=== PATIENT | female | born 1985 | race Caucasian/White ===

== ENCOUNTER 2016-05-05 08:13 | Inpatient (IN) | payer OTHER ==
[~2016-05-05] VITALS: Ht 160 cm; Wt 100.0 kg
[~2016-05-05 08:13] MED LIST: ACET-1256 PO; BCPILLS PO; MTR600X PO; PRENTAB26 PO
[2016-05-05] MEDS ORDERED: LACTATED RINGER'S 1000ML 1,000 ML IV SCH (08:38)
[2016-05-05] MEDS ORDERED: LACTATED RINGER'S 1000ML 1,000 ML IV PRN (08:38)
[2016-05-05] MEDS ORDERED: PENICILLIN G POTASSIUM IV 3 MU in DEXTROSE 5% 100ML 100 ML IV PRN (08:45)
[2016-05-05] MEDS ORDERED: PENICILLIN G POTASSIUM IV 6 MU in DEXTROSE 5% 250ML 250 ML IV ONE (09:15)
[2016-05-05 09:20] LABS: MEAN CELL VOLUME 92.8 fL (80-100); MEAN CORPUSCULAR HEMOGLOBIN 32.2 pg (25-34); MEAN CORPUSCULAR HGB CONC 34.7 g/dl (32-36); MEAN PLATELET VOLUME 9.8 fL (7.4-10.4); PLATELET COUNT 162 K/uL (130-400); RED BLOOD COUNT 3.88 M/uL (4.2-5.4); WHITE BLOOD COUNT 14.77 K/uL (4.8-10.8)
[2016-05-05] MEDS ORDERED: EpHEDrine SULFATE INJ 50 MG/ML AMP ONE (09:32)
[2016-05-05] MEDS ORDERED: BUPIVACAINE 0.25% 30 ML VIAL ONE (09:32)
[2016-05-05] MEDS ORDERED: FENTANYL 2MCG/ML ROPIV 1.25MG/ML 100ML BAG EPI ONE (09:32)
[2016-05-05] MEDS ORDERED: FENTANYL CITRATE INJ 50 MCG/1 ML 2 ML VIAL ONE (09:33)
[2016-05-05] MEDS ORDERED: NALOXONE HCL INJ 1 MG in SODIUM CHLORIDE 0.9% 1000ML 1,000 ML IV PRN (10:31)
[2016-05-05] MEDS ORDERED: LACTATED RINGER'S 1000ML 500 ML IV PRN (10:31)
--- NOTE | 2016-05-05 10:33 | HISTORY & PHYSICAL EXAMINATION ---
DATE OF ADMISSION: 05/05/2016 CHIEF COMPLAINT: Contractions. HISTORY OF PRESENT ILLNESS: The patient is a 31-year-old 2, para 1 at 39 weeks and 2 days gestation who presents to labor and delivery with contractions that began around morning and progressively increased in intensity and frequency. On arrival, she states she was alexandra every 2-3 minutes. She was found to be 6-7 cm, 75% effaced, and -2 station. She is GBS positive and therefore will begin penicillin for GBS prophylaxis. Her care has been uncomplicated. PAST MEDICAL HISTORY: Significant for depression and anxiety. PAST SURGICAL HISTORY: She has a history of a spontaneous vaginal delivery in December of 2012 at term. SOCIAL HISTORY: She denies tobacco, alcohol or drug use. MEDICATIONS: vitamins. ALLERGIES: No known drug allergies. LABS: Blood type is O positive, group B strep positive, rubella immune, hepatitis B surface antigen negative, RPR nonreactive. PHYSICAL EXAMINATION: VITAL SIGNS: Blood pressure is 130/80, heart rate of 102. GENERAL: The patient is awake, alert and oriented x3. She is in moderate distress from her contractions. HEART: Regular rate and rhythm. LUNGS: Clear to auscultation bilaterally. ABDOMEN: Gravid uterus, appropriate for gestational age. Bowel sounds present x4. EXTREMITIES: No clubbing, cyanosis or calf tenderness. VAGINAL EXAMINATION: She is 6-7 cm, 75% effaced, and -2 station. heart tones are category 1. ASSESSMENT AND PLAN: A 31-year-old 2, para 1 at 39 weeks and 2 days gestation will be admitted to labor and delivery for active labor. Will begin with penicillin for GBS prophylaxis. Will augment labor as needed and anticipate vaginal delivery.
[2016-05-05] MEDS ORDERED: NALBUPHINE HCL INJ 10 MG/ML AMP IV PRN (10:45)
[2016-05-05] MEDS ORDERED: NALOXONE HCL INJ 0.4 MG/1 ML VIAL/CARP IV PRN (10:45)
[2016-05-05] MEDS ORDERED: DiphenhydrAMINE HCL 50 MG/ML VIAL IV PRN (10:45)
[2016-05-05] MEDS ORDERED: FENTANYL 2MCG/ML ROPIV 1.25MG/ML 100ML BAG EPI PRN (10:45)
[2016-05-05] MEDS ORDERED: EpHEDrine SULFATE INJ 50 MG/ML AMP IV PRN (10:45)
[2016-05-05 11:05] VITALS: Ht 160 cm; Wt 100.0 kg
[2016-05-05] MEDS ORDERED: OXYTOCIN 30 UNITS/500ML NSS IV ONE (15:19)
[2016-05-05] MEDS ORDERED: OXYTOCIN 30 UNITS/500ML NSS IV PRN (15:45)
[2016-05-05] MEDS ORDERED: ACETAMINOPHEN 325 MG TAB PO PRN (15:45)
[2016-05-05] MEDS ORDERED: ACETAMINOPHEN/CODEINE 300/30MG TAB PO PRN ×2 (15:45)
[2016-05-05] MEDS ORDERED: LANOLIN OINT EXT PRN ×2 (15:45)
[2016-05-05] MEDS ORDERED: SUPERCREAM 0.870 % 15GM JAR EXT PRN (15:45)
[2016-05-05] MEDS ORDERED: BENZOCAINE 20% AER SPR 82.5 GM CAN EXT PRN (15:45)
[2016-05-05] MEDS ORDERED: OXYCODONE/ACETAMINOPHEN 5-325 TAB PO PRN (15:45)
[2016-05-05] MEDS ORDERED: HYDROCORTISONE ACETATE 25 MG SUPP PR PRN (15:45)
[2016-05-05] MEDS ORDERED: DIPHTHERIA/TETANUS/PERTUSSIS 0.5 ML SYR/VIAL IM. ONE (15:45)
--- NOTE | 2016-05-05 16:11 | DELIVERY SUMMARY ---
DATE OF OPERATION: 05/05/2016 TIME OF DELIVERY: 15:24. DELIVERY OF PLACENTA: 15:27. DELIVERY NOTE: The patient is a 31-year-old 2, para 1 at 39 weeks' and 2 days' gestation who presented to labor and delivery on the morning of 05/05/2016 in active labor. She received an epidural for anesthesia. Spontaneous rupture of membranes occurred at 12:51 with clear amniotic fluid noted. She reached complete dilation at 14:27 with the urge to push. The patient pushed to delivery at 15:24. She delivered a viable male infant to an intact perineum at 15:24 in the left occiput anterior position with Apgars of 8 at 1 minute and 9 at 5 minutes. The baby was placed on the patient's abdomen. The cord was clamped x2 and cut. Please see nursing notes for further baby assessment. Cord blood donation was obtained along with cord blood and an intact placenta with 3-vessel cord was delivered at 15:27. Oxytocin infusion was then begun. The lower uterine segment and vagina was cleared of any blood clot and debris. Exploration of the perineum noted no lacerations. Estimated blood loss was 250 mL. All sponge and instrument counts were found to be correct x2. Both the patient and baby tolerated the delivery well and was in recovery with stable vital signs. I attest to the content of the Intraoperative Record and any orders documented therein. Any exceptio ns are noted below.
--- NOTE | 2016-05-05 16:57 | Anesthesia Procedure Note ---
Anesthesia Epidural Removal Nt Date & Time May 05, 2016 at 16:56 Vital Signs Pain Intensity: 8.0 Notes Mental Status: alert / awake / arousable, participated in evaluation Nausea / Vomiting: adequately controlled Pain: adequately controlled Airway Patency, RR, SpO2: stable & adequate BP & HR: stable & adequate Hydration State: stable & adequate Neuraxial Anesthesia: was administered Anesthetic Complications: no major complications apparent, pt satisfied with anesthetic care Epidural: removed without complications, with tip intact
[2016-05-05 20:00] VITALS: BP 124/81; PULSE 86; TEMP 36.5
[2016-05-05] MEDS: DOCUSATE SODIUM 100 MG CAP PO SCH (20:10)
[2016-05-06 00:08] VITALS: BP 132/85; PULSE 85; TEMP 36.6
[2016-05-06] MEDS: IBUPROFEN 600 MG TAB PO PRN ×5 (03:23→22:20)
[2016-05-06 03:30] VITALS: BP 128/86; PULSE 80; TEMP 36.6
[2016-05-06 06:19] LABS: HEMATOCRIT 40.3 % (37-47)
--- NOTE | 2016-05-06 06:55 | OB/GYN Progress Note ---
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 Subjective conversation w/ patient, physical exam Ambulation: ambulating normally Voiding: no voiding problems Passing Gas: Yes Diet Tolerance: Regular Diet Lochia: Moderate Feeding Type: Breast Feeding Pain: 2/10 Notes: Doing well. Pain well controlled. Ambulating without difficulty. Tolerating regular diet. Lochia moderate. Objective Vital Signs Date Time Temp Pulse Resp B/P Pulse Ox O2 Delivery O2 Flow Rate FiO2 05/06/16 03:30 36.6 80 18 128/86 Room Air 05/06/16 00:08 36.6 85 18 132/85 05/06/16 00:03 Room Air 05/05/16 20:00 Room Air 05/05/16 20:00 36.5 86 18 124/81 Room Air Physical Exam General Appearance: WELL-APPEARING Respiratory/Chest: chest non-tender, lungs clear Cardiovascular: regular rate, rhythm Abdomen: normal bowel sounds, soft Fundus: Firm Extremities: normal range of motion, non-tender, no calf tenderness Laboratory Results Last 24 Hours Test 05/05/16 09:10 05/06/16 05:58 White Blood Count 14.77 K/uL Red Blood Count 3.88 M/uL Hemoglobin 12.5 g/dL 14.0 g/dL Hematocrit 36.0 % 40.3 % Mean Corpuscular Volume 92.8 fL Mean Corpuscular Hemoglobin 32.2 pg Mean Corpuscular Hemoglobin Concent 34.7 g/dl RDW Standard Deviation 46.9 fL RDW Coefficient of Variation 13.9 % Platelet Count 162 K/uL Mean Platelet Volume 9.8 fL Assessment and Plan Post- Day Number: 1 Continue Routine Care: -Continue routine care -Anticipate d/c home tomorrow
[2016-05-06] MEDS: DOCUSATE SODIUM 100 MG CAP PO SCH ×2 (08:00→19:26)
[2016-05-06] MEDS: PRENATAL VITAMIN TAB PO SCH (08:12)
[2016-05-06] MEDS: FERROUS SULFATE 325 MG TAB PO SCH (08:12)
[2016-05-06 09:10] VITALS: BP 110/68; PULSE 75; TEMP 36.7; O2SAT 97
[2016-05-06 11:50] VITALS: BP 130/82; PULSE 95; TEMP 36.3
[2016-05-06 16:20] VITALS: BP 127/83; PULSE 92; TEMP 36.7
[2016-05-06] MEDS ORDERED: BISACODYL 5 MG TABEC PO SCH (20:00)
[2016-05-06 22:50] VITALS: BP 146/88; PULSE 84; TEMP 36.7
[2016-05-07] MEDS ORDERED: BISACODYL 10 MG SUPP PR PRN (07:00)
[2016-05-07 07:09] LABS: HEMATOCRIT 36.4 % (37-47); MEAN CELL VOLUME 94.3 fL (80-100); MEAN CORPUSCULAR HEMOGLOBIN 32.1 pg (25-34); MEAN CORPUSCULAR HGB CONC 34.1 g/dl (32-36); MEAN PLATELET VOLUME 9.8 fL (7.4-10.4); PLATELET COUNT 168 K/uL (130-400); RED BLOOD COUNT 3.86 M/uL (4.2-5.4); WHITE BLOOD COUNT 12.48 K/uL (4.8-10.8)
[2016-05-07 08:05] VITALS: BP 123/85; PULSE 76; TEMP 36.7; O2SAT 97
[2016-05-07] MEDS: FERROUS SULFATE 325 MG TAB PO SCH (08:40)
[2016-05-07] MEDS: DOCUSATE SODIUM 100 MG CAP PO SCH (08:40)
[2016-05-07] MEDS: PRENATAL VITAMIN TAB PO SCH (08:40)
[2016-05-07] MEDS: IBUPROFEN 600 MG TAB PO PRN (08:42)
[2016-05-07] MEDS ORDERED: MTR600X PO (10:32)
--- NOTE | 2016-05-07 10:34 | Discharge Instructions ---
Discharge Instructions Admission Reason for Admission: Check Labor Discharge Discharge Diagnosis / Problem: term delivered Discharge Goals Goal(s): Routine recovery after delivery Activity Recommendations Activity Limitations: as noted below Lifting Limitations: no more than 10 pounds Exercise/Sports Limitations: until after follow-up appointment May Resume Sexual Activity: after follow-up appointment Shower/Bathe: no limitations Driving or Machine Use: resume 3 days after discharge . Instructions / Follow-Up Instructions / Follow-Up ACTIVITY RECOMMENDATIONS: * Gradual return to full activity over the next 2-3 weeks. * No lifting - nothing heavier than baby over the next 2-3 weeks. * Do not engage in vigorous exercise, sexual activity or sports until cleared by your physician. * Do not drive or operate any motorized equipment until cleared by your physician. * You may shower/bathe daily. BREAST CARE: If you are not breast feeding: * Wear a supportive bra 24 hours a day for one to two weeks. * Avoid stimulating your breasts and nipples as much as possible during the first few weeks after delivery. * When taking a shower, have the warm water hit your back, not breasts. * When your breasts feel full, apply ice packs. Usually three to four times a day helps ease the discomfort. * Take a mild pain medication (Tylenol/Motrin) when you are uncomfortable. If breast feeding: * Use breast milk to lubricate nipples. Lansinoh cream may be used for sore nipples. You do not need to remove cream prior to breast feeding. If using a different brand of cream, check the label for directions regarding removal of cream prior to nursing. * Wear a supportive bra. * If having problems with breasts or breast feeding, call a strategy execution consultant or your health care provider. EPISIOTOMY CARE: After delivery, if you have an episiotomy (stitches), the following steps will ease discomfort and aid healing. * For the first 24 hours after delivery, place ice packs next to your episiotomy to help reduce swelling. * After the first 24 hour-period, sitz baths, either portable or in the tub, are suggested. A shower with a shower arm sprayed over the episiotomy may be comforting. * Lisa care should be done after each voiding and bowel movement. Squirt warm water from a plastic bottle over the perineum (region of the body between the anus and urinary opening) and pat dry. * Use Dermoplast to ease discomfort. Shake container. [place] directly over the episiotomy. * Place a Tucks on a clean sanitary pad next to your episiotomy. OVER THE COUNTER MEDICATION: * For discomfort or pain, you may use Acetaminophen (Tylenol), Ibuprofen (Advil ), or Naproxen (Aleve) following the package directions. * For constipation you may use Colace following the package directions. SPECIAL CARE INSTRUCTIONS: When you are discharged from the hospital, it is important for you to follow the instructions listed below: * During the first week at home, you should be able to care for yourself and your baby. In addition, the usual light household activities are encouraged. * Limit your activities to the way you feel. Do not try to clean the house or move furniture. Be sensible. * If you actively engage in sports and have done so up until the time of your delivery, you may resume these activities as soon as you feel able. This may take up to one month or even longer. Use good judgment. * Continue to take your vitamins for at least six weeks after the of your baby. * Your diet need not be limited unless you were on a special diet before your delivery. Breast-feeding mothers need around 2500 calories per day and at least 64-80 ounces of fluid per day (8 to 10 glasses). * You should eat foods from the four major food groups. Crash diets or fad diets are to be avoided. Eating lean meats, fresh fruits and vegetables, low-fat dairy products, high fiber foods and a regular exercise program, will help you get back to your pre- weight without putting your health at risk. * Constipation is sometimes a problem after delivery. Take a mild laxative as needed. If breast feeding, Milk of Magnesia is acceptable to use. You may use a suppository or Fleets enema if no episiotomy. * A daily shower or tub bath is suggested. Be sure to thoroughly and gently dry the perineum. * A bloody vaginal discharge will usually continue until around four weeks post . A small amount of bleeding may continue for as long as six weeks. Vaginal discharge changes from the bright red bleeding after delivery to pink then brownish and finally yellowish-pink before becoming white and disappearing. * Bleeding may increase with activity. Your first period may come in 4-8 weeks. If you are breast feeding, your period may be delayed even longer. * [place] (sex) can begin whenever both you and your partner feel comfortable and do not have any form of genital infection. It is recommended that you wait until after your return appointment and discuss with your physician. If you have questions, please talk to your health care practitioner. A condom should be used to prevent infection and . * Foreplay, gentle intercourse and lubrication is very important the first several times to prevent pain. A water-based lubricant such as K-Y jelly or Astroglide may be used. * Tampons may be used six weeks after delivery. * Douching should be avoided for 6 weeks after delivery. * If you have RH negative blood and your baby is RH positive, you will receive RHOGAM by injection prior to discharge. The nurse will give you a card to keep with you that has the date and place that you received RHOGAM after delivery. * During your care, you had a Rubella screen done to check for the presence of rubella antibodies in your blood. If your test was negative, you will receive a Rubella vaccine prior to discharge. This vaccine may cause a fever, soreness at the injection site and flu-like symptoms. If these symptoms persist, notify your health care practitioner. is not advised for three months after a Rubella vaccine. There is a higher chance of having a baby with defects if conceived within three months of getting the vaccine. * If you were discharged 24 hours from delivery or before 48 hours: Visiting nurses will come to your home 48 hours after discharge to assess you and your baby. The visiting nurse will meet with you while you are in the hospital to arrange a time and get directions to your home. * Verbalizes understanding of car seat law as reviewed with patient nursing. * Car Seat hand-out given and reviewed with patient by nursing. * Shaken baby information reviewed with patient by nursing. Call you doctor if: * Heavy bleeding (saturating several pads an hour) or passing clots the size of your fist. * A fever >101 degrees F (38.3 degrees C) on two occasions four hours apart and/or chills. * Unusual pain in the pelvic or vaginal areas. * "Baby Blues" lasting longer than two weeks. If you have any questions or concerns, call your health care practitioner at . FOLLOW-UP VISIT: * Please call the office at to schedule a 6 week examination. It is important you keep this appointment. * It is important for you to make arrangements for either yearly or twice yearly check-ups thereafter. Current Hospital Diet Patient's current hospital diet: Regular OB Diet Discharge Diet Recommended Diet: Regular OB Diet Pending Studies Studies pending at discharge: no Medical Emergencies . Who to Call and When: Medical Emergencies: If at any time you feel your situation is an emergency, please call 911 immediately. . Non-Emergent Contact Non-Emergency issues call your: Primary Care Provider . . "Provider Documentation" section prepared by Constantin Pineda. VTE Core Measure Inpt VTE Proph given/why not?: Treatment not indicated
--- NOTE | 2016-05-07 10:36 | OB/GYN Progress Note ---
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 Subjective conversation w/ patient, physical exam Ambulation: ambulating normally Voiding: no voiding problems Passing Gas: Yes Diet Tolerance: Regular Diet Lochia: Small Feeding Type: Breast Feeding Objective Vital Signs Date Time Temp Pulse Resp B/P Pulse Ox O2 Delivery O2 Flow Rate FiO2 05/07/16 08:05 Room Air 05/07/16 08:05 36.7 76 20 123/85 97 Room Air 05/06/16 22:50 Room Air 05/06/16 22:50 36.7 84 18 146/88 Room Air 05/06/16 16:20 Room Air 05/06/16 16:20 36.7 92 20 127/83 05/06/16 11:50 36.3 95 18 130/82 Room Air Physical Exam General Appearance: WELL-APPEARING, NO APPARENT DISTRESS Abdomen: non tender, soft Fundus: Firm Extremities: non-tender, normal inspection Laboratory Results Last 24 Hours Test 05/07/16 06:35 White Blood Count 12.48 K/uL Red Blood Count 3.86 M/uL Hemoglobin 12.4 g/dL Hematocrit 36.4 % Mean Corpuscular Volume 94.3 fL Mean Corpuscular Hemoglobin 32.1 pg Mean Corpuscular Hemoglobin Concent 34.1 g/dl RDW Standard Deviation 48.1 fL RDW Coefficient of Variation 14.0 % Platelet Count 168 K/uL Mean Platelet Volume 9.8 fL Assessment and Plan Post- Day Number: 2 Continue Routine Care: discharged
[2016-05-07 13:35] VITALS: BP_DIAS 85; PULSE 76; TEMP 36.7
== END 2016-05-07 13:35 | disposition home or self-care (01) | DRG 775 ==
LOC: C.LD 08:13 → C.OPB 08:13 → C.LD 08:39 → C.OBG 19:21
PROVIDERS: ADMIT Obstetrics & Gynecology; ATTEND Obstetrics & Gynecology
PROC: 10E0XZZ Delivery of Products of Conception, External Approach (ICD-10-PCS; principal; 2016-05-05)
DX: O99.824 Streptococcus B carrier state complicating childbirth (principal); Z37.0 Single live birth; Z3A.39 39 weeks gestation of pregnancy

== ENCOUNTER 2020-07-02 13:13 | Inpatient (IN) ==
[2020-07-02] MEDS ORDERED: OXYTOCIN 30 UNITS/500 ML BAG IV PRN ×2 (13:50→19:22)
[2020-07-02 14:27] LABS: Hematocrit (blood only) 37.7 % (37-47); Mean Corpuscular Hemoglobin 32.4 pg (25-34); Mean Corpuscular Hgb Conc 34.5 g/dL (32-36); Mean Platelet Volume 10.3 fL (7.4-10.4); Platelet Count 155 K/uL (130-400); RDW Coefficient of Variation 13.9 % (11.5-14.5); RDW Standard Deviation 47.8 fL (36.4-46.3); Red Blood Count 4.01 M/uL (4.2-5.4); White Blood Count 12.72 K/uL (4.8-10.8)
--- NOTE | 2020-07-02 19:34 | Obstetrical Progress Note ---
Date of Service July 02, 2020 Assessment & Plan Admission and Anticipated Discharge Date Admission Date: July 02, 2020 Subjective Admit Note 35 F [id number] at 37.2 weeks admitted with SROM. GBS s negative. Covid is negatove. FHT CAt 1. Cevix 1.5/50/-2/vertex/firm. Will start Oxytocin to augment contractions. EFW 7.5 lbs. Results & Data ([facility]) Vital Signs (Past 12 Hours) Vital Signs Temp Pulse Resp BP 07/02/20 19:04 36.7 C 16 07/02/20 19:00 100 H 140/86 07/02/20 17:18 36.6 C 102 H 20 135/80 07/02/20 15:32 37.0 C 102 H 18 137/79 07/02/20 13:27 98 H 127/79 07/02/20 13:21 37.2 C 108 H 20 135/87
[2020-07-02] MEDS: LACTATED RINGER'S 1,000 ML IV PRN ×2 (19:53→22:46)
[2020-07-02] MEDS ORDERED: ePHEDrine sulfate 50 MG/ML AMP ONE (21:40)
[2020-07-02] MEDS ORDERED: fentaNYL citrate 100 MCG/2 ML VIAL ONE (21:40)
[2020-07-02] MEDS ORDERED: BUPIVACAINE 0.25% 30 ML VIAL ONE (21:40)
[2020-07-02] MEDS ORDERED: SODIUM CHLORIDE 0.9% INJ 10 ML VIAL ONE (21:40)
[2020-07-02] MEDS ORDERED: fentaNYL 2MCG/ML ROPIVACAINE 1.25MG/ML 100 ML BAG EPI ONE (21:41)
--- NOTE | 2020-07-02 22:17 | Anesthesiology Consultation ---
Date of Service July 02, 2020 Assessment & Plan (1) Encounter for pre-operative examination: Chart Review Chart Review: Acceptable Risk for Surgery and Patient NOT seen in Pre Admission Testing Consults Requested none History Height/Weight Height: 5 ft 3 in Weight: 105.687 kg Allergies Allergy/AdvReac Type Severity Reaction Status Date / Time No Known Allergies Allergy NONE Verified 04/03/18 06:32 Medications Home Medications Medication Instructions Recorded Confirmed Last Taken prenat.vits,jocelin,kvf-[id number] 1 tab PO DAILY 07/02/20 07/02/20 07/01/20 20:00 [ Vitamin] Active Medications Generic Name Dose Route Start Last Admin Trade Name Freq PRN Reason Stop Dose Admin Lactated Ringer's 1,000 mls @ 125 mls/hr 07/02/20 13:50 07/02/20 22:05 Lr IV 07/04/20 13:49 125 mls/hr .Q8H PRN Infusion L&D Protocol Protocol Oxytocin 30 units in 500 mls @ 5 mls/hr 07/02/20 19:22 07/02/20 21:15 Pitocin IV 07/04/20 19:21 0.3 units/hr .Q24H PRN 5 mls/hr Labor Induction/Augmentation Titration Protocol 0.3 UNITS/HR Past Surgical History Surgical History [place] teeth extracted Social History Smoking Status: Never smoker Hx Alcohol Use: No Hx Substance Use: No substance use type: does not use Physical Exam Vital Signs Last Vital Signs Temp 36.7 C 07/02/20 21:04 Pulse 100 H 07/02/20 19:00 Resp 16 07/02/20 21:04 BP 140/86 07/02/20 19:00 Testing Laboratory Results 07/02/20 14:05
[2020-07-02] MEDS ORDERED: ePHEDrine sulfate 50 MG/ML AMP IV PRN (22:47)
[2020-07-02] MEDS ORDERED: fentaNYL 2MCG/ML ROPIVACAINE 1.25MG/ML 100 ML BAG EPI PRN (22:47)
[2020-07-02] MEDS ORDERED: diphenhydrAMINE 50 MG/ML VIAL IV PRN (22:47)
[2020-07-02] MEDS ORDERED: ONDANSETRON INJ 2 MG/ML 2 ML VIAL IV PRN (22:47)
[2020-07-02] MEDS ORDERED: NALOXONE HCL 0.4 MG/1 ML VIAL/CARP IV PRN (22:47)
[2020-07-02] MEDS ORDERED: NALOXONE HCL 1 MG in SODIUM CHLORIDE 0.9% 1000ML 1,000 ML IV PRN (22:47)
[2020-07-03] MEDS ORDERED: NURSING L&D Epidural Breakthrough Pain Update ONE (01:44)
--- NOTE | 2020-07-03 02:41 | Anesthesia Procedure Note ---
Date of Service July 03, 2020 Anesthesia Post Epidural Note Vital Signs Vital Signs: Temp Pulse Resp BP Pulse Ox 36.8 C 108 H 16 117/58 L 96 07/03/20 01:11 07/03/20 02:37 07/03/20 01:11 07/03/20 02:12 07/03/20 02:37 Pain Intensity Bilateral Abdomen: Pain Intensity: 2 Notes Mental Status: alert / awake / arousable and participated in evaluation Nausea / Vomiting: adequately controlled Pain: adequately controlled Airway Patency, RR, SpO2: stable & adequate BP & HR: stable & adequate Hydration State: stable & adequate Neuraxial Anesthesia: was administered and sensory block is resolving Anesthetic Complications: no major complications apparent and Pt Satisfied with anesthetic care Epidural: Removed without complications and With tip intact Notes: Epidural site clean, dry and intact. No signs of edema, erythema or bruising at insertion site. Pt instructed to request anesthesia if she has residual lower extremity numbness or if she develops lower extremity pain or weakness, back pain or headache.
--- NOTE | 2020-07-03 02:43 | Delivery Summary ---
Vaginal Delivery Summary Date of Service July 03, 2020 Vaginal Delivery Summary Delivery note live female over intact perineum LINDA with delayed cord clamping. Apgars 8/9 weight pending. Cord blood obtained followed by spontaneous delivery of intact placenta. No tears. EBL 100 ml. Final sponge and instrument count are correct. Mom and baby stable.
[2020-07-03] MEDS ORDERED: SUPERCREAM 0.870% 15 GM JAR EXT PRN (04:01)
[2020-07-03] MEDS ORDERED: OXYTOCIN 30 UNITS/500 ML BAG IV PRN (04:01)
[2020-07-03] MEDS ORDERED: DIPHTHERIA/TETANUS/PERTUSSIS 0.5 ML SYR/VIAL IM ONE (04:01)
[2020-07-03] MEDS ORDERED: HYDROCORTISONE ACETATE 25 MG SUPP PR PRN (04:01)
[2020-07-03] MEDS ORDERED: bisacodyL 10 MG SUPP PR PRN (04:01)
[2020-07-03] MEDS ORDERED: BENZOCAINE 20% AER SPR 82.5 GM CAN EXT PRN (04:01)
[2020-07-03] MEDS: IBUPROFEN 600 MG TAB PO PRN ×5 (05:06→23:42)
[2020-07-03] MEDS ORDERED: PRENATAL VITAMIN 1 TAB PO SCH (08:00)
[2020-07-03] MEDS: DOCUSATE SODIUM 100 MG CAP PO SCH ×2 (08:08→19:45)
[2020-07-03] MEDS ORDERED: NON-FORMULARY MEDICATION (Prenat.Vits,Cal,Min-Iron-Folic Tablet) PO SCH (09:00)
[2020-07-03] MEDS: ACETAMINOPHEN 325 MG TAB PO PRN (19:45)
[2020-07-04] MEDS: IBUPROFEN 600 MG TAB PO PRN (03:29)
[2020-07-04 06:25] LABS: Hematocrit (blood only) 37.4 % (37-47); Hemoglobin 12.7 g/dL (12.0-16.0); Mean Corpuscular Hemoglobin 32.3 pg (25-34); Mean Corpuscular Volume 95.2 fL (80-100); Mean Platelet Volume 9.9 fL (7.4-10.4); Platelet Count 164 K/uL (130-400); RDW Coefficient of Variation 14.2 % (11.5-14.5); RDW Standard Deviation 49.5 fL (36.4-46.3); Red Blood Count 3.93 M/uL (4.2-5.4); White Blood Count 12.19 K/uL (4.8-10.8)
[2020-07-04] MEDS: ACETAMINOPHEN 325 MG TAB PO PRN (06:44)
--- NOTE | 2020-07-04 08:07 | Obstetrical Progress Note ---
Date of Service July 04 Patient is seen and examined. She feels well, no complaints. Ambulating without dizziness Voiding without difficulty Tolerating regular diet with out N&V Bleeding is minimal No fever/ chills/ CP/ SOB/ N&V/ Leg pain Breast feeding without problems Vital Signs Temp Pulse Resp BP Pulse Ox 07/04/20 07:20 36.7 C 90 18 107/75 97 07/03/20 23:40 36.6 C 83 18 122/79 97 07/03/20 19:35 36.5 C 87 18 113/79 97 07/03/20 15:08 36.8 C 82 18 122/83 98 07/03/20 11:45 36.4 C L 80 18 115/77 97 Lab Results 07/02/20 07/02/20 07/04/20 Range/Units 14:05 14:50 06:08 WBC 12.72 H 12.19 H (4.8-10.8) K/uL RBC 4.01 L 3.93 L (4.2-5.4) M/uL Hgb 13.0 12.7 (12.0-16.0) g/dL Hct 37.7 37.4 (37-47) % MCV 94.0 95.2 (80-100) fL MCH 32.4 32.3 (25-34) pg MCHC 34.5 34.0 (32-36) g/dL RDW Std Deviation 47.8 H 49.5 H (36.4-46.3) fL RDW Coeff of Serena 13.9 14.2 (11.5-14.5) % Plt Count 155 164 (130-400) K/uL MPV 10.3 9.9 (7.4-10.4) fL SARS-CoV-2, RNA, NAAT NEGATIVE (NEGATIVE) PE: General: Alert, orientedx3, NAD Abd: soft, NT, fundus firm, below Umbilicus Perineum intact, Lochia rubra minimal Ext; NT, no edema AP: 35 yo s/p , ppd# 1 VSS Afebrile doing well Continue routine care Desires d/c today All questions were answered D/C home , f/u in office 21 Assessment & Plan Admission and Anticipated Discharge Date Admission Date: July 02, 2020 Results & Data ([facility]) Vital Signs (Past 12 Hours) Vital Signs Temp Pulse Resp BP Pulse Ox 07/04/20 07:20 36.7 C 90 18 107/75 97 07/03/20 23:40 36.6 C 83 18 122/79 97
[2020-07-04] MEDS ORDERED: bisacodyL 5 MG TABEC PO SCH (20:00)
== END 2020-07-04 11:30 | disposition home or self-care (01) | DRG 807 ==
LOC: OPB 13:13 → 4S1 13:15 → 4S2 07-03 05:26